=== PATIENT | male | born 1990 | race Hispanic/Latino ===

== ENCOUNTER 2019-01-22 17:32 | Emergency (ER) | payer SELFPAY ==
--- NOTE | 2019-01-22 17:59 | Event Note ---
ED Screening Note Date of service: 01/22/19 Time: 17:51 ED Screening Note: 28 y/o male comes in for feeling down and paranoid. This initial assessment/diagnostic orders/clinical plan/treatment(s) is/are subject to change based on patients health status, clinical progression and re- assessment by fellow clinical providers in the ED. Further treatment and workup at subsequent clinical providers discretion. Patient/guardian urged not to elope from the ED as their condition may be serious if not clinically assessed and managed. Initial orders include:
[2019-01-22 18:33] LABS: Basophils % (Auto) 0.4 % (0.0-1.8); Eosinophils % (Auto) 0.2 % (0.0-4.3); Hematocrit 41.3 % (35.5-45.6); Lymphocytes % (Auto) 16.6 % (13.4-35.0); Mean Corpuscular HGB Conc 34 % (32-34); Mean Corpuscular Volume 85 fl (84-94); Monocytes # (Auto) 0.5 K/mm3 (0.0-0.8); Monocytes % (Auto) 3.8 % (0.0-7.3); Platelet Count 456 K/mm3 (140-440); Red Blood Count 4.86 M/mm3 (3.65-5.03)
--- NOTE | 2019-01-22 18:41 | Emergency Department Report ---
ED Psych HPI - General Chief Complaint: Psych Stated Complaint: HEADACHE/AMS Time Seen by Provider: 01/22/19 18:33 Source: patient Mode of arrival: Ambulatory Limitations: No Limitations - History of Present Illness Initial Comments: Patient is a 28-year-old male presents to emergency room with complaints of audiovisual hallucinations and headache. Patient states she's had these going on for long time. Patient states he stopped taking his medications 2 years ago. Patient states he symptoms are worsening. Patient states he feels like people are trying to control him to his phone. Patient states that somebody switched bones with him in order to watch him. Patient states that his hearing seen hallucinations. Patient states they're more frequent. Patient states that he has suicidal homicidal ideations but does not have a plan at this time. -: Sudden Associated Psychiatric Symptoms: racing thoughts, auditory hallucinations, visual hallucinations History of same: Yes Quality: constant Improves With: medication Worsens With: other Context: not taking psychiatric, significant life stressor Associated Symptoms: headache. denies: confusion, shortness of breath, nausea, vomiting, syncope, insomnia If Self Harm: admits thoughts of - Related Data Allergies Allergy/AdvReac Type Severity Reaction Status Date / Time No Known Allergies Allergy Unverified 01/22/19 17:52 ED Review of Systems ROS: Stated complaint: HEADACHE/AMS Other details as noted in HPI Constitutional: denies: chills, fever Eyes: denies: eye pain, eye discharge, vision change ENT: denies: ear pain, throat pain Respiratory: denies: cough, shortness of breath, wheezing Cardiovascular: denies: chest pain, palpitations Endocrine: no symptoms reported Gastrointestinal: denies: abdominal pain, nausea, diarrhea Genitourinary: denies: urgency, dysuria Musculoskeletal: denies: back pain, joint swelling, arthralgia Skin: denies: rash, lesions Neurological: denies: headache, weakness, paresthesias Psychiatric: auditory hallucinations, visual hallucinations, homicidal thoughts, suicidal thoughts. denies: anxiety, depression Hematological/Lymphatic: denies: easy bleeding, easy bruising ED Past Medical Hx - Past Medical History Previous Medical History?: Yes Hx Psychiatric Treatment: Yes - Surgical History Past Surgical History?: No - Family History Family history: no significant - Social History Smoking Status: Never Smoker Substance Use Type: Alcohol, Marijuana, Methamphetamines ED Physical Exam - General Limitations: No Limitations General appearance: alert, in no apparent distress - Head Head exam: Present: atraumatic, normocephalic - Eye Eye exam: Present: normal appearance - ENT ENT exam: Present: mucous membranes moist - Neck Neck exam: Present: normal inspection - Respiratory Respiratory exam: Present: normal lung sounds bilaterally. Absent: respiratory distress - Cardiovascular Cardiovascular Exam: Present: regular rate, normal rhythm. Absent: systolic murmur, diastolic murmur, rubs, gallop - GI/Abdominal GI/Abdominal exam: Present: soft, normal bowel sounds - Rectal Rectal exam: Present: deferred - Extremities Exam Extremities exam: Present: normal inspection - Back Exam Back exam: Present: normal inspection - Neurological Exam Neurological exam: Present: alert, oriented X3 - Psychiatric Psychiatric exam: Present: anxious, flat affect - Expanded Psychiatric Exam Expanded Focused psych exam: Present: delusional, paranoid, flight of ideas, loose a ssociations - Skin Skin exam: Present: warm, dry, intact, normal color. Absent: rash ED Course Vital Signs 01/22/19 01/22/19 17:51 20:00 Temperature 98.4 F 98.2 F Pulse Rate 115 H 86 Respiratory 16 18 Rate Blood Pressure 140/89 Blood Pressure 143/79 [Left] O2 Sat by Pulse 99 100 Oximetry - Reevaluation(s) Reevaluation #1: Patient placed on 1013 for acute psychosis. 01/22/19 18:41 Reevaluation #2: I discussed the results of patient. Patient will remain in the ER as a 1013. Patient will stay in the ER until accepted into appropriate psychiatric facility. Patient states that he did not mean what he said during the initial interview. Patient states that he is not hearing any voices now. Patient states he needs to go home and take care of things. I discussed acute psychosis and a 1013 regulation's with the patient and the patient will remain in the ER. 01/22/19 20:20 ED Medical Decision Making - Lab Data Result diagrams: 01/22/19 18:23 01/22/19 18:23 - Medical Decision Making This 28-year-old male presents for acute psychosis. Patient placed on 1013. Patient had slept on it wrong. Patient stable for admission to a psychiatric facility. Patient will remain in the ER on a 1013 until accepted into appropriate psychiatric facility. - Differential Diagnosis acute psychosis. Medical clearance Critical care attestation.: If time is entered above; I have spent that time in minutes in the direct care of this critically ill patient, excluding procedure time. ED Disposition Clinical Impression: Acute psychosis, Hallucinations, Paranoia, Medical clearance for psychiatric admission Disposition: [id number] PSY HOSP/PSY UNIT Is pt being admited?: No Does the pt Need Aspirin: No Condition: Stable Time of Disposition: 20:21
[2019-01-22 18:46] LABS: Bilirubin,Urine NEG (Negative); Blood,Urine SM (Negative); Color,Urine Yellow (Yellow); Mucus,Urine 2+ /HPF; Protein,Urine <15 mg/dL mg/dL (Negative)
[2019-01-22 18:47] LABS: Benzodiazepines Screen,Urine PRESUMPTIVE NEGATIVE; Cocaine Screen,Urine PRESUMPTIVE NEGATIVE; Methadone Screen,Urine PRESUMPTIVE NEGATIVE; Opiate Screen,Urine PRESUMPTIVE NEGATIVE
[2019-01-22 18:49] LABS: Alanine Aminotransferase 14 units/L (7-56); Calcium 8.9 mg/dL (8.4-10.2); Hemolysis Index 3
[2019-01-22 19:19] LABS: BUN/Creatinine Ratio 12; Blood Urea Nitrogen 11 mg/dL (9-20)
[2019-01-22 19:24] LABS: Amphetamine Screen,Urine PRESUMPTIVE POSITIVE; Cannabinoid Screen,Urine PRESUMPTIVE POSITIVE
[2019-01-23] MEDS ORDERED: WATER FOR INJ Sterile (PF) 10 ML ONE (00:17)
[2019-01-23] MEDS ORDERED: GEODON IM ONE ×2 (00:17→00:20)
[2019-01-23] MEDS ORDERED: ATIVAN ONE (00:18)
[2019-01-23] MEDS ORDERED: ATIVAN IM ONE (00:20)
[2019-01-23 08:31] VITALS: BP 102/77
--- NOTE | 2019-01-23 11:01 | Consultation ---
History of Present Illness - Reason for Consult Consult date: 01/23/19 Reason for consult: [facility] Evaluation Requesting physician: FRANCESCO GONZALEZ III - Chief Complaint Chief complaint: "I want to stop using drugs" - History of Present Psychiatric Illness 28 y.o. white male who presented to the ER for AVH's. Today the patient was calm and cooperative during the assessment. He stated that he has a long hx of substance abuse. He stated that his recreational drug use has increased recently because he's homeless and "out of work." He stated that he was a patient in a mental health facility in the past for his drug use. He denies a mood/psychotic do when asked. He stated that he is willing to try rehab services once discharged. He stated that he came to the ER because he need help. He denies SI/HI's and AVH's. He denies erratic sleep and a poor appetite. He denies alcohol consumption (etoh). Medications and Allergies Allergies Allergy/AdvReac Type Severity Reaction Status Date / Time No Known Allergies Allergy Unverified 01/22/19 17:52 Past psychiatric history - Past Medical History Past Medical History: No medical history Past Surgical History: No surgical history - past Psychiatric treatment and history psychiatric treatment history: Hx of recreational drug use. Denies a fam psy hx. - Social History Social history: other (Homeless) Mental Status Exam - Vital signs Last Vital Signs Temp 97.4 F L 01/23/19 07:00 Pulse 81 01/23/19 07:00 Resp 18 01/23/19 07:00 BP 102/77 01/23/19 07:00 Pulse Ox 99 01/23/19 07:00 - Exam Narrative exam: MSE: Appearance: calm, cooperative Behavior: regular eye contact Speech: regular rate and tone Mood: "okay" Affect: congruent to mood Thought Process: circumstantial Thought Content: denies SI/HI's and AVH's Motor Activity: sitting up in bed Cognition: A/O x3 Insight: fair Judgment: fair Results Result Diagrams: 01/22/19 18:23 01/22/19 18:23 Abnormal lab results 01/22/19 01/22/19 Range/Units 18:23 18:23 WBC 12.1 H (4.5-11.0) K/mm3 RDW 13.0 L (13.2-15.2) % Plt Count 456 H (140-440) K/mm3 Seg Neutrophils % 79.0 H (40.0-70.0) % Seg Neutrophils # 9.6 H (1.8-7.7) K/mm3 Potassium 3.5 L (3.6-5.0) mmol/L Carbon Dioxide 31 H (22-30) mmol/L Glucose 111 H (75-100) mg/dL All other labs normal. 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 Cannabis Use DO. Substance Use DO (amphetamines). Today the patient was calm and cooperative during the assessment. The patient's psychosis has resolved. Recommendation/Plan: Rescind 1013. Discussed the importance to abstain from recreational drug use, he verbalized understanding. Case mgmt involvement, the patient will need assistance with placement. Dispo: The patient can follow up with [facility] for outpatient psy/rehab services. Staffed with Dr Ayad Escalona.
== END 2019-01-23 12:19 | disposition home or self-care (01) ==
LOC: EEVIPCON 17:32 → ED 17:32
DX: F22 Delusional disorders (principal); F12.10 Cannabis abuse, uncomplicated; F15.20 Other stimulant dependence, uncomplicated; F41.9 Anxiety disorder, unspecified; Z59.0 Homelessness
CPT/HCPCS: 36415; 80053; 80307; 81001; 85025; 96372; 99284; J2060; J3486